=== PATIENT | male | born 1960 | race Two or more races ===

== ENCOUNTER 2019-04-01 07:32 | Emergency (ER) | payer OTHER ==
[2019-04-01 07:39] VITALS: BP 148/87; PULSE 93; TEMP 97.8; BMI 35.5
[2019-04-01] MEDS ORDERED: DEXAMETHASONE LIQUID 0.5 MG/5 ML PO ONE (08:20)
[2019-04-01] MEDS ORDERED: DEXAMETHASONE SOD PHOSPHATE 10 MG/1 ML VIAL ONE (08:22)
--- NOTE | 2019-04-01 08:23 | PDOC ---
History of Present Illness - General History Source: Patient Exam Limitations: No Limitations <Dominga Kumari - Last Filed: 04/01/19 08:17> <Garrison Snow - Last Filed: 04/01/19 14:46> - General Chief Complaint: Rash Stated Complaint: ALLERGIC REACTION (POISON ELLA) Time Seen by Provider: 04/01/19 08:00 Past History - Travel Traveled outside of the country in the last 30 days: No Close contact w/someone who was outside of country & ill: No - Past Medical History Anemia: No Asthma: No Cancer: No Cardiac Disorders: No CVA: No COPD: No CHF: No Dementia: No Diabetes: No GI Disorders: No Disorders: No HTN: Yes (DIET CONTROLLED) Hypercholesterolemia: No Liver Disease: No Seizures: No Thyroid Disease: No - Surgical History Abdominal Surgery: No Appendectomy: No Cardiac Surgery: No Cholecystectomy: No Lung Surgery: No Neurologic Surgery: No Orthopedic Surgery: Yes (LEFT ROTATOR CUFF,LEFT KNEE ARTHROSCOPY) - Suicide/Smoking/Psychosocial Hx Smoking Status: No Smoking History: Never smoked Have you smoked in the past 12 months: No Number of Cigarettes Smoked Daily: 0 Hx Alcohol Use: No Drug/Substance Use Hx: No Substance Use Type: Alcohol Hx Substance Use Treatment: No <Dominga Kumari - Last Filed: 04/01/19 08:17> <Garrison Snow - Last Filed: 04/01/19 14:46> - Past Medical History Allergies/Adverse Reactions: Allergies Allergy/AdvReac Type Severity Reaction Status Date / Time No Known Allergies Allergy Verified 04/01/19 07:39 Home Medications: Ambulatory Orders Amoxicillin - [Amoxicillin 875mg Tablet -] 875 mg PO BID #14 tab 07/13/14 Diphenhydramine HCl [Benadryl -] 25 mg PO Q8H #21 capsule 04/01/19 Ranitidine [Zantac -] 150 mg PO BID #14 tablet 04/01/19 predniSONE [Deltasone -] 20 mg PO ASDIR #30 tablet 04/01/19 Review of Systems - Review of Systems Able to Perform ROS?: Yes Comments:: 04/01/19 08:17 CONSTITUTIONAL: Absent: fever, chills, diaphoresis, generalized weakness, malaise, loss of appetite HEENT: Absent: rhinorrhea, nasal congestion, throat pain, throat swelling, difficulty swallowing, mouth swelling, ear pain, eye pain, visual Changes MUSCULOSKELETAL: Absent: myalgia, arthralgia, joint swelling SKIN: Present: rash, itching Absent: pallor NEUROLOGIC: Absent: headache, focal weakness or paresthesias, dizziness, unsteady gait, seizure, mental status changes, bladder or bowel incontinence PSYCHIATRIC: Absent: anxiety, depression, suicidal or homicidal ideation, hallucinations. Is the patient limited Greek proficient: No <Dominga Kumari - Last Filed: 04/01/19 08:17> *Physical Exam - Vital Signs Last Vital Signs Temp Pulse Resp BP Pulse Ox 97.8 F 93 H 16 148/87 96 04/01/19 07:35 04/01/19 07:35 04/01/19 07:35 04/01/19 07:35 04/01/19 07:35 - Physical Exam Comments: 04/01/19 08:18 GENERAL: The patient is awake, alert, and fully oriented, in no acute distress. HEAD: Normal with no signs of trauma. EYES: Pupils equal, round and reactive to light, extraocular movements intact, sclera anicteric, conjunctiva clear. EXTREMITIES: Normal range of motion, no edema. NEUROLOGICAL: Normal speech, normal gait. PSYCH: Normal mood, normal affect. SKIN: Multiple patches with various stages of allergic reaction, including wheals in linear patterns to the arms, chest, abdomen, groin, and anterior neck. Warm, Dry, normal turgor, no rashes or lesions noted. <Dominga Kumari - Last Filed: 04/01/19 08:17> - Vital Signs Last Vital Signs Temp Pulse Resp BP Pulse Ox 97.8 F 93 H 16 148/87 96 04/01/19 07:35 04/01/19 07:35 04/01/19 07:35 04/01/19 07:35 04/01/19 07:35 <Garrison Snow - Last Filed: 04/01/19 14:46> ED Treatment Course - Medications Given in the ED: ED Medications Discontinued Medications Generic Name Dose Route Start Last Admin Trade Name Freq PRN Reason Stop Dose Admin Dexamethasone 10 mg 04/01/19 08:20 04/01/19 08:26 Decadron Liquid - PO 04/01/19 08:21 10 mg ONCE ONE Administration <Garrison Snow - Last Filed: 04/01/19 14:46> Medical Decision Making - Medical Decision Making 04/01/19 08:20 The patient is a 59 y/o M with PMH of back pain, presents to the ER with three weeks of rash and itching to his arms, neck, abdomen and groin. The patient states approximately 3 weeks ago he was gardening and came across poison ella. He states that the rash continued to get worse over the past three weeks. He has tried many over the counter regimens with little relief of his symptoms. Denies SOB, fever, diff breathing, n/v/d A/P: Allergic reaction to poison ella On exam, Multiple patches with various stages of allergic reaction, including wheals in linear patterns to the arms, chest, abdomen, groin, and anterior neck. Appears to be an allergic reaction to poison ella; will treat with first dose of decadron in the ED 15 days steroid taper, benadryl, and zantac sent to patient's pharmacy Pt to f/u with PCP Derm referral also given DC home I discussed the physical exam findings, ancillary test results and final diagnoses with the patient. I answered all of the patient's questions. The patient was satisfied with the care received and felt comfortable with the discharge plan and treatment plan. The Patient agrees to follow up with the primary care physician/specialist within 24-72 hours. Return precautions were given. <Dominga Kumari - Last Filed: 04/01/19 08:17> - Medical Decision Making 04/01/19 14:46 I reviewed the case of the mid-level practitioner and was available for consultation while in the emergency department <Garrison Snow - Last Filed: 04/01/19 14:46> *DC/Admit/Observation/Transfer - Discharge Dispostion Decision to Admit order: No <Dominga Kumari - Last Filed: 04/01/19 08:17> <Garrison Snow - Last Filed: 04/01/19 14:46> Diagnosis at time of Disposition: Poison ella dermatitis - Discharge Dispostion Disposition: HOME Condition at time of disposition: Stable - Prescriptions Prescriptions: Diphenhydramine HCl [Benadryl -] 25 mg PO Q8H #21 capsule predniSONE [Deltasone -] 20 mg PO ASDIR #30 tablet Ranitidine [Zantac -] 150 mg PO BID #14 tablet - Referrals Referrals: Nadine Mejia MD [Staff Physician] - - Patient Instructions Printed Discharge Instructions: DI for Poison Ella Allergy Additional Instructions: You were evaluated for your rash today; it is most likely caused by poison ella Start taking the prednisone (steroids) as directed starting tomorrow. You received your first dose in the ER today. Take the Benadryl 25mg every 8 hours Take the Zantac twice a day You may use calamine lotion to the affected areas Follow up with your primary care doctor this week. You were also provided a referral to a chief radiologic technologist. Return to the ER for worsening rash, pain to the areas, fever, or if you have any changes in your symptoms
== END 2019-04-01 08:30 | disposition home or self-care (01) ==
LOC: JER 07:32
DX: L23.7 Allergic contact dermatitis due to plants, except food (principal)
CPT/HCPCS: 99282-25

== ENCOUNTER 2019-04-29 14:06 | Emergency (ER) | payer OTHER ==
[2019-04-29 14:11] VITALS: BP 148/87; PULSE 95; TEMP 97.9; BMI 33.9
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
[2019-04-29] MEDS ORDERED: IBUPROFEN 600 MG TABLET (FP) PO ONE (15:06)
== END 2019-04-29 15:32 | disposition home or self-care (01) ==
LOC: JERFT 14:06
DX: S39.82XA Other specified injuries of lower back, initial encounter (principal); M54.5 Low back pain; V43.52XA Car driver injured in collision with other type car in traffic accident, initial encounter; Y92.412 Parkway as the place of occurrence of the external cause; Y93.89 Activity, other specified; Y99.8 Other external cause status; I10 Essential (primary) hypertension; Z87.39 Personal history of other diseases of the musculoskeletal system and connective tissue
CPT/HCPCS: 99281-25